=== PATIENT | female | born 1965 | race Caucasian/White ===

== ENCOUNTER → 2021-04-20 | Outpatient (CLI) | payer OTHER | END | disposition home or self-care (01) | LOC: CFH 10:27 | PROVIDERS: ATTEND Family Medicine | DX: R92.1 Mammographic calcification found on diagnostic imaging of breast (principal); R92.8 Other abnormal and inconclusive findings on diagnostic imaging of breast | CPT/HCPCS: 77062; 77066; G0279 ==